=== PATIENT | male | born 1990 | race American Indian/Alaskan Native ===

== ENCOUNTER 2021-08-12 06:59 | Emergency (ER) | payer SELFPAY ==
[2021-08-12 16:06] VITALS: BP 122/69
[2021-08-12] MEDS ORDERED: PENICILLIN G BENZATHINE 1.2 MILLION UNIT/2 ML INJ IM ONE (16:08)
--- NOTE | 2021-08-12 16:14 | Emergency Department Report ---
ED General Adult HPI - General Chief complaint: Medical Clearance Stated complaint: STD CHECK/SYPHILIS Time Seen by Provider: 08/12/21 16:08 Source: patient Mode of arrival: Ambulatory Limitations: No Limitations - History of Present Illness Initial comments: Patient is a 31-year-old male presenting to ED for evaluation after he was told by [facility] that his blood tested positive for syphilis. Blood was drawn roughly 2 to 3 weeks ago. States he was told to come here for shot of penicillin. He denies any symptoms. He denies any lesions on his penis. Severity scale (0 -10): 0 Associated Symptoms: denies other symptoms Treatments Prior to Arrival: none - Related Data Home Medications Medication Instructions Recorded Confirmed Last Taken No Known Home Medications [No 08/12/21 08/12/21 Unknown Reported Home Medications] Allergies Allergy/AdvReac Type Severity Reaction Status Date / Time No Known Allergies Allergy Verified 08/12/21 16:08 ED Review of Systems ROS: Stated complaint: STD CHECK/SYPHILIS Other details as noted in HPI Comment: All other systems reviewed and negative Constitutional: denies: chills, fever Respiratory: denies: cough, shortness of breath, wheezing Cardiovascular: denies: chest pain, palpitations Gastrointestinal: denies: abdominal pain, nausea, diarrhea Genitourinary: denies: urgency, dysuria Musculoskeletal: denies: back pain, joint swelling, arthralgia Skin: denies: rash, lesions Neurological: denies: headache, weakness, paresthesias Psychiatric: denies: anxiety, depression Hematological/Lymphatic: denies: easy bleeding, easy bruising ED Past Medical Hx - Social History Smoking Status: Unknown if ever smoked Substance Use Type: None - Medications Home Medications: Home Medications Medication Instructions Recorded Confirmed Last Taken Type No Known Home Medications [No 08/12/21 08/12/21 Unknown History Reported Home Medications] ED Physical Exam - General Limitations: No Limitations - Head Head exam: Present: atraumatic, normocephalic - Eye Eye exam: Present: normal appearance - ENT ENT exam: Present: normal exam - Neck Neck exam: Present: normal inspection - Respiratory Respiratory exam: Present: normal lung sounds bilaterally. Absent: respiratory distress - Cardiovascular Cardiovascular Exam: Present: regular rate, normal rhythm. Absent: systolic murmur, diastolic murmur, rubs, gallop - GI/Abdominal GI/Abdominal exam: Present: soft, normal bowel sounds - Extremities Exam Extremities exam: Present: normal inspection - Neurological Exam Neurological exam: Present: alert, oriented X3, CN II-XII intact - Psychiatric Psychiatric exam: Present: normal affect, normal mood - Skin Skin exam: Present: warm, dry, intact, normal color. Absent: rash ED Course Vital Signs 08/12/21 08/12/21 07:42 16:05 Temperature 97.4 F L 97.8 F Pulse Rate 70 77 Respiratory 16 16 Rate Blood Pressure 134/86 122/69 [Right] O2 Sat by Pulse 100 99 Oximetry ED Medical Decision Making - Medical Decision Making Patient given IM pen G. Stable for discharge home. Patient instructed follow- up with PCP within 1 to 2 months for recheck. Also instructed to use protection during intercourse. Critical care attestation.: If time is entered above; I have spent that time in minutes in the direct care of this critically ill patient, excluding procedure time. ED Disposition Clinical Impression: Positive serology for syphilis Disposition: HOME / SELF CARE / HOMELESS Is pt being admited?: No Does the pt Need Aspirin: No Condition: Good Instructions: Syphilis Test Referrals: PRIMARY MD CRISTI [Primary Care Provider] - 09/12/21 Time of Disposition: 16:15
== END 2021-08-12 16:20 | disposition home or self-care (01) ==
LOC: ED 06:59
DX: A53.9 Syphilis, unspecified (principal)
CPT/HCPCS: 96372; 99282; J0561